=== PATIENT | male | born 1990 | race American Indian/Alaskan Native ===

== ENCOUNTER 2019-06-04 00:05 | Emergency (ER) | payer SELFPAY ==
[2019-06-04 00:19] VITALS: BP 135/83
== END 2019-06-04 01:05 | disposition left against medical advice (07) ==
LOC: ED 00:05
DX: K08.89 Other specified disorders of teeth and supporting structures (principal); Z53.21 Procedure and treatment not carried out due to patient leaving prior to being seen by health care provider

== ENCOUNTER 2019-08-05 21:13 | Emergency (ER) | payer SELFPAY ==
[2019-08-05 22:44] VITALS: BP 140/69
--- NOTE | 2019-08-05 23:42 | Emergency Department Report ---
Chief Complaint: Dental/Oral Stated Complaint: TOOTHACHE Time Seen by Provider: 08/05/19 23:36 - HPI History of Present Illness: T9-year-old -[place] male presents to the emergency room complaining of tooth pain for 3 days. Patient reports he took an Excedrin which she reports did not help much. Patient then informs me that he smoked a blunt thinking maybe that would help. Patient has not followed up with a dentist. She does not have any facial swelling no discharge from the tooth. - Exam Vital Signs: Vital Signs 08/05/19 22:42 Temperature 98.1 F Pulse Rate 72 Respiratory 18 Rate Blood Pressure 140/69 O2 Sat by Pulse 97 Oximetry Physical Exam: Patient's alert K[place] 3 no acute distress. Mouth moist tooth #13 is not intact. There is no gingiva enlargement. No facial swelling. MSE screening note: Focused history and physical exam performed. Due to findings the following was ordered: Patient has no facial swelling or discharge from site. Patient be referred to community dentist. ED Disposition for MSE Condition: Stable
== END 2019-08-06 | disposition home or self-care (01) ==
LOC: ED 21:13
DX: K08.89 Other specified disorders of teeth and supporting structures (principal); Z53.21 Procedure and treatment not carried out due to patient leaving prior to being seen by health care provider

== ENCOUNTER 2019-08-14 02:19 | Emergency (ER) | payer SELFPAY ==
[2019-08-14 02:38] VITALS: BP 144/84
--- NOTE | 2019-08-14 04:27 | Emergency Department Report ---
Chief Complaint: Dental/Oral Stated Complaint: TOOTHACHE Time Seen by Provider: 08/14/19 03:56 - HPI History of Present Illness: This is a 29-year-old -Niue[place] male who presents to the emergency room with right upper dental pain for 2 weeks. Patient reports a broken to at #4 several months ago with worsening pain. Patient reports only able to get a follow-up appointment with the dizziness for the and August. - ROS Review of Systems: HEENT: Dental pain - Exam Vital Signs: Vital Signs 08/14/19 02:37 Temperature 97.6 F Pulse Rate 52 L Respiratory 20 Rate Blood Pressure 144/84 O2 Sat by Pulse 98 Oximetry Physical Exam: HEENT: Partial tooth #4 TTP, no gingival swelling, no palpated abscess or pus pocket. MSE screening note: Focused history and physical exam performed. Due to findings the following was ordered: ED Medical Decision Making - Medical Decision Making This is a 29-year-old male that presents with dental pain for 2 weeks. Patient is stable and was examined by me. No signs of distress noted. This is nonemergent medical complaint. Patient approached by registration and refused copayment. Patient given list of emergency dental clinic and primary care doctors for continued care. Discharged home stable. Follow up with dentist. ED Disposition for MSE Clinical Impression: Toothache Disposition: - TO HOME OR SELFCARE Is pt being admited?: No Condition: Stable Instructions: Toothache (ED), Dental Caries (ED) Additional Instructions: Follow-up with the dentist from the list provided. I have also provided a primary care doctor for you to follow up with to manage her pain. Referrals: [facility] [Outside] - 3-5 Days [facility] [Outside] - 3-5 Days [facility] [Outside] - 3-5 Days MARISELA VELAZCO MD [Staff Physician] - 3-5 Days Forms: Work/School Release Form(ED) Time of Disposition: 04:29
== END 2019-08-14 04:41 | disposition home or self-care (01) ==
LOC: ED 02:19
DX: K08.89 Other specified disorders of teeth and supporting structures (principal)